=== PATIENT | female | born 1970 | race Caucasian/White ===

== ENCOUNTER → 2019-08-03 | Outpatient (CLI) | payer OTHER ==
--- NOTE | 2019-08-11 19:34 | SLEEP ---
[address] [address] SLEEP STUDY REPORT Name: YAIR REESE Room: [facility]#: [id number] Admission: 08/03/19 Attend Phys: Ghassan Christianson Discharge: Date of : 72 Report #: [id number] THIS REPORT FOR: //name// CC: Jenn Hogue DO This study has been reviewed in its entirety by a board certified sleep specialist DATE OF SERVICE: 08/03/2019 HOME SLEEP STUDY REFERRING PHYSICIAN: Jenn Hogue DO INDICATIONS: The patient is 49 years old who weighs 245 pounds with a BMI of 37.2. The patient's Aurora score was 5. The patient underwent a home sleep study performed by [facility]. Total recording time was 522 minutes. During the night study, the patient had 4 obstructive apneas. No central or mixed apneas and 23 hypopneas. The patient's apnea-hypopnea index was 3.7 per hour with a supine index of 8.5 per hour. Nocturnal oximetry study revealed an average oxygen saturation of 93% with the lowest of 78%. Twenty minutes were spent at oxygen saturation less than 90% and 17 minutes with saturation less than 85%. Next, mean heart rate is 49 beats per minute with a maximum of 130 beats per minute. IMPRESSION: 1. Overall, no clinically significant sleep disordered breathing. The patient had mild positional sleep apnea. 2. Nocturnal hypoxia, suspect secondary to hypoventilation. RECOMMENDATIONS: 1. The patient did not have any significant sleep disordered breathing. If clinical suspicion for sleep apnea is still high, then consider doing in-lab polysomnogram. 2. Avoid supine sleep. 3. Weight loss is advised. 4. The patient would be eligible for nocturnal oxygen at 1-2 liters. <ELECTRONICALLY SIGNED> By: Howard Carey MD 08/11/19 1934 [id number] Carey MD /nt
== END ==
LOC: M.SLEEPLAB 06-18 09:00
DX: G47.30 Sleep apnea, unspecified (principal); R09.02 Hypoxemia